=== PATIENT | female | born 1965 | race Caucasian/White ===

== ENCOUNTER 2017-07-27 22:17 | Emergency (ER) | payer OTHER ==
[2017-07-27 22:52] VITALS: BP 136/81; PULSE 81; TEMP 98.1; BMI 28.3
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
[2017-07-28] MEDS ORDERED: IBUPROFEN 600 MG TABLET (FP) PO ONE ×2 (00:42→01:02)
== END 2017-07-28 03:39 | disposition home or self-care (01) ==
LOC: SUPCPDRO 22:17 → JER 22:17
DX: M25.572 Pain in left ankle and joints of left foot (principal); V43.52XA Car driver injured in collision with other type car in traffic accident, initial encounter; Y92.414 Local residential or business street as the place of occurrence of the external cause; Y93.89 Activity, other specified; Y99.9 Unspecified external cause status
CPT/HCPCS: 73630-TC-LT; 99283-25